=== PATIENT | male | born 1935 | race Caucasian/White ===

== ENCOUNTER 2017-01-01 19:51 | Inpatient (IN) | payer OTHER, SELFPAY ==
--- NOTE | ~2017-01-01 | DS ---
Discharge Summary [facility] [address] [place]. [address] NAME: PERFECTO TORRES : 33 STATUS : DIS IN PAT#: [id number] AGE: 81 ADM/REG DATE : 01/01/17 MR#: [id number] REPORT SERV DATE: 01/13/17 DICTATED BY: TEODORO REYNAGA DATE: 01/11/17 REPORT STATUS : Draft TRANSCRIBED BY: MODL DATE: 01/11/17 ADMISSION DATE: 01/01/2017 DISCHARGE DATE: 01/11/2017 CONSULTANTS: 1. Dylan Seals MD. 2. Dr. Jacqueline Sanchez, Neurology. 3. Jose F Sheffield M.D., Psychiatry. DISCHARGE DIAGNOSES: 1. Metabolic encephalopathy. 2. 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 3. 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 4. History of anterior myocardial infarction, 11/2014. 5. Previous pulmonary embolism in 2011. 6. 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 Rohit Lai. 7. Chronic obstructive pulmonary disease. 8. Hypertension. 9. Obstructive sleep apnea but not compliant with CPAP. 10.Knee osteoarthritis. 11.History of gout. 12.Stage 3 chronic kidney disease. 13.History of anorexia treated with steroids. This patient was brought to [facility] for approximately 2 weeks of changes in the patient's behavior. The reported that he was becoming paranoid, feeling that she was against him, his family was against him. He wanted to preach her to get together a 6 member committee to discuss their marriage. He wants her to sign everything that they talk about. He gets very mad and angry. He had impulsive buying. He had rapid changing of subjects. He was becoming irrational talking about going fishing and he would just stay out there fishing for a month. Because of this, he was referred to our team for inpatient care at [facility]. Imaging included chest x-ray which revealed some COPD and some mild atelectasis and some atherosclerotic changes of the thoracic aorta with a possible aneurysmal change of the thoracic aorta. CT of the brain without contrast revealed large, old stroke, right frontal and temporal region. No acute abnormalities were noted. The patient absolutely refused MRI imaging. He was seen by Neurology, Dr. Seals, was concerned he might have seizures causing the problem. So she did an EEG on the patient. No seizure activity was noted. Background activity appeared diffusely slow but slightly such. Blood cultures with no growth. Urinalysis with no convincing signs of infection. Did have proteinuria of 100. White blood count unremarkable. Hemoglobin was mildly low ranging between 11.5 and 13.5. Platelets Discharge Summary [address] [place]. [address] NAME: PERFECTO TORRES : 33 STATUS : DIS IN PAT#: [id number] AGE: 81 ADM/REG DATE : 01/01/17 MR#: [id number] REPORT SERV DATE: 01/13/17 DICTATED BY: TEODORO REYNAGA DATE: 01/11/17 REPORT STATUS : Draft TRANSCRIBED BY: PRAVEEN DATE: 01/11/17 were normal. Ammonia level was normal. He has stage 3 chronic kidney disease and that was stable with his creatinine ranging between 1.17 and 1.58. His electrolytes were unremarkable. Liver enzymes unremarkable. TSH normal. B12 normal. Folic acid normal. He was seen in consultation by psychiatrist, Dr. Jose F Sheffield. Dr. Sheffield found that historically talking to the and patient about two years earlier the patient had developed severe anorexia, weight loss, was very depressed, and withdrawn. Did not have any care for that. Dr. Sheffield felt patient was currently in a bipolar manic phase and started him on Depakote and Seroquel. With these additions, the patient's condition improved dramatically. His rapid speech resolved. His agitation and paranoia resolved. He was, at one point, too sedated when he was on Depakote 500 mg b.i.d. and Seroquel 100 mg at bedtime. He also was getting some daytime Seroquel. Seroquel was tapered. He was just put on nighttime doses. The patient still was drowsy. So we have tapered the Seroquel down to 25 mg at bedtime. The patient is now calm and cooperative. Thinking clearly. Because he has not been physically active through this long hospital stay other than minimal with physical therapy, he has lost a lot of leg muscle tone and is going to need inpatient physical therapy rehab. Those arrangements have been made with signature in the [facility] where he has recuperated in the past. DISCHARGE MEDICATIONS: Allopurinol 300 mg daily; vitamin C 500 mg daily; Lipitor 40 mg at bedtime; Rocaltrol 0.25 mg, he takes Friday, Friday, Friday, , Friday, Friday, skips on Friday; Coreg 6.25 mg twice a day hold if pulse less than 60 or systolic less than 105; vitamin B12 500 mcg daily; Atlas 500 mg at bedtime; Pepcid 20 mg daily; Zyrtec 10 mg daily; Seroquel 25 mg at bedtime; DuoNeb inhaled q.4 hours p.r.n. shortness of breath; Symbicort 160/4.5 two puffs twice a day; Tylenol 500 q.6 p.r.n. pain; Senokot two at bedtime p.r.n. Home CPAP to be used with sleep. We will try to encourage him to do this as I think it can help with his mental status. After he gets out of the rehab he should follow up with his PCP, Dr. Adan Carter, and his flexographic printing machinist, Dr. Sapp, and his inventory control specialist, Dr. Simental, and the and Psychiatry had talked about the patient following up with psychiatrist, Dr. Muhammad, in [facility] after discharge. I spent 40 minutes today with the patient and with discharge planning. I also called and talked to his daughter on the phone as I could not reach his . Her phone was not working properly. RSG/MICHELLEL Teodoro Reynaga M.D. / [id number] CC: Discharge Summary [address] [place]. [address] NAME: PERFECTO TORRES : 33 STATUS : DIS IN PAT#: [id number] AGE: 81 ADM/REG DATE : 01/01/17 MR#: [id number] REPORT SERV DATE: 03/27/17 DICTATED BY: TEODORO REYNAGA DATE: 01/11/17 REPORT STATUS : Draft TRANSCRIBED BY: MODL DATE: 01/11/17 Jacky Henson M.D. Joseph Powers, M.D. [facility] Prudencio Muhammad MD
--- NOTE | ~2017-01-01 | CN ---
Consultation Report [facility] [address] [place]. [address] NAME: PERFECTO TORRES : 33 STATUS : ADM Sammi PAT#: [id number] AGE: 81 ADM/REG DATE : 01/01/17 MR#: [id number] REPORT SERV DATE: 01/02/17 DICTATED BY: DYLAN SEALS DATE: 01/02/17 REPORT STATUS : Draft TRANSCRIBED BY: MODL DATE: 01/02/17 NEUROLOGICAL EVALUATION DATE OF CONSULTATION: 01/02/2017 REASON FOR NEUROLOGICAL CONSULTATION: Acute encephalopathy, history of cerebrovascular accident, rule out seizures versus new CVA. HISTORY OF PRESENT ILLNESS: This is an 81-year-old white male with known history of hypertension, coronary artery disease, aortic aneurysm repair, and prior history of CVA which occurred approximately a year ago, described as a brain bleed, who was admitted with two-week history of mental status changes and difficulty sleeping. The patient was hospitalized at [facility] last year for an acute right frontotemporal stroke, which appeared to be a hemorrhagic stroke. The patient gradually improved to the point where he was functioning well. The patient, however, was started on steroids as per the patient's by his primary physician, who told the family that "the patient will have to remain on prednisone for the rest of his life." The patient, as per his , refused to take all his medications approximately two weeks ago. He stopped taking his Lasix and stopped taking his prednisone approximately a week ago. The patient has been agitated, angry, suspicious of his , has not been sleeping except for two hours at night, rambling through the house, and acting confused and belligerent. This behavior is uncommon for this patient. The patient was brought to the emergency room, where an emergency CT scan of the head was obtained, which showed no evidence of acute changes or bleed and showed the area of encephalomalacia in the right frontotemporal region, which appeared to be a wedge shape. PAST MEDICAL HISTORY: As mentioned above, history of coronary artery disease, hypertension, COPD, past history of tobacco abuse, history of a stroke last year. PAST SURGICAL HISTORY: The patient had ?aortic aneurysm repaired a few years ago as per the patient's . FAMILY HISTORY: Significant for diabetes. SOCIAL HISTORY: The patient lives with his , this is his fourth . The patient does have history of prior smoking. There is no history of alcohol use. REVIEW OF SYSTEMS: Difficult to obtain from the patient. However, the patient's provided some of the answers. The patient did not have any fever, complaints of chills, or any signs of viral illnesses. There was no recent immunization. The patient did not have episodes of falling or hitting his head. The patient uses albuterol inhaler on daily basis and uses prednisone 10 mg a day. It appears that the patient was started on prednisone for treatment of his COPD. The patient did not have any signs of shaking or tonic-clonic activity, and there is no history of loss of consciousness. No new weakness was noted by the patient's . Consultation Report [address] [place]. [address] NAME: PERFECTO TORRES : 33 STATUS : ADM Sammi PAT#: [id number] AGE: 81 ADM/REG DATE : 01/01/17 MR#: [id number] REPORT SERV DATE: 01/02/17 DICTATED BY: DYLAN SEALS DATE: 01/02/17 REPORT STATUS : Draft TRANSCRIBED BY: PRAVEEN DATE: 01/02/17 The rest of 14-point review of system was negative as per . PHYSICAL EXAMINATION: VITAL SIGNS: Blood pressure 170/98, pulse is 90, respirations 18, and temperature is 98.6. HEAD AND NECK: Showed him to be normocephalic. There was no evidence of trauma. Auscultation of the neck showed no evidence of bruits. Neck was supple. There was no Kernig or Brudzinski. Cervical range of motion was not impaired. EYES: Showed mild ptosis on the right. Sclerae were not icteric. Conjunctivae were pink. The patient appeared to have slightly bulging eyes. Facial expression appeared symmetrical. CHEST: Symmetrical. LUNGS: Clear to auscultation. HEART: Regular S1 and S2. No S3, S4, or gallops were noted. ABDOMEN: Soft and nontender. EXTREMITIES: Showed no clubbing or cyanosis. There is no peripheral edema. Peripheral pulses appeared intact. IMPRESSION: Two-week history of manic episode in a patient with history of previous frontal lobe infarct. Differential diagnosis includes: 1. Recurrent partial seizures. 2. Manic phase of bipolar disorder. 3. Underlying infectious process. Doubt presence of meningitis, although it should be considered if no other cause of the patient's mental status changes is found. 4. History of hypertension, history of coronary artery disease, history of aortic aneurysm repair. 5. Increased risk of stroke or recurrent stroke. PLAN: 1. Recommend to obtain an EEG to monitor for possible focal changes that may suggest presence of underlying seizures. 2. Prevent falling and injury. 3. MRI of the brain without and with contrast to rule out an acute stroke or other abnormality which may explain the patient's change of behavior. 4. Would recommend to treat the patient with IV Depakote, which may control manic phase. The patient's liver function is normal. Monitor liver function if the patient remains on Depakote. Use of 500 mg q.12 hours IV may be needed since the patient refuses to take his oral medications. 5. Restart steroids. Would provide the patient with using inhaler and increased dose of steroids, the patient has been on it for two weeks. 6. The patient's laboratory studies were reviewed. No significant metabolic abnormalities were detected. The patient's magnesium needs to be tested with the next draw. The patient's medications were reviewed. The patient has been on amlodipine, allopurinol, carvedilol, vitamin B12, famotidine, mirtazapine 15 mg q.h.s., atorvastatin 40 mg, and loratadine. Would restart the patient's medications once he is more cooperative and able to take the medications. Monitor blood pressure, do not drop blood pressure Consultation Report [address] [place]. [address] NAME: PERFECTO TORRES : 33 STATUS : ADM Sammi PAT#: [id number] AGE: 81 ADM/REG DATE : 01/01/17 MR#: [id number] REPORT SERV DATE: 01/02/17 DICTATED BY: DYLAN SEALS DATE: 01/02/17 REPORT STATUS : Draft TRANSCRIBED BY: MODCarlos Eduardo DATE: 01/02/17 abruptly, maintain it in the 140-180 range if possible. 7. Sleep disturbance and chronic sleep deprivation may contribute to the patient's delirium. Would consider using a sleeping medication at bedtime if needed. Maintain the patient's activity during the day. Avoid the patient taking naps, which may further disturb his circadian rhythm. Obstructive sleep apnea should be considered, and an outpatient polysomnography study when the patient is more cooperative should be obtained to rule out sleep apnea or REM related behavioral disorder. 8. Laboratory studies should include vitamin B12 and folate level, vitamin D level, and cortisol level if the patient is not back on the steroids. Thank you for allowing me to participate in this patient's care. FAM/PRAVEEN Dylan Seals MD / [id number] CC: Jacky Hernandez Alex G
--- NOTE | ~2017-01-01 | EEG ---
Electroencephalogram [facility] [address] [place]. [address] NAME: PERFECTO TORRES : 33 STATUS : ADM IN PAT#: [id number] AGE: 81 ADM/REG DATE : 01/01/17 MR#: [id number] REPORT SERV DATE: 01/09/17 DICTATED BY: DYLAN SEALS DATE: 01/08/17 REPORT STATUS : Draft TRANSCRIBED BY: PRAVEEN DATE: 01/08/17 EEG NUMBER: [id number]. INTERPRETING PHYSICIAN: Dylan Seals MD REASON FOR EEG: Encephalopathy, altered mental status, rule out seizures, the patient was given 1 mg of Ativan prior to this study, episodes of manic behavior, past history of right MCA territory stroke. DESCRIPTION: 23 surface electrodes, 10-20 international placement was used. Video monitoring was utilized. The study was performed with the patient sitting in a reclining chair, intermittently restless. The background activity during very brief periods of semi- alertness showed posterior rhythmic 6-8 cycles per second, located in the posterior head regions. Mild asymmetry was noted with decreased amplitude noted on the right. The patient was described as drowsy, asleep, sedated. Photic stimulation was performed. During sleep stages, bilaterally synchronous and asynchronous sleep spindles were noted anteriorly. No significant asymmetry otherwise was present. Intermittent central and temporal slowing in the theta range was observed. No paroxysmal or epileptiform activity was seen during this study. 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 Photic stimulation did not bring out additional abnormalities. IMPRESSION: THE PATIENT WAS SEDATED PRIOR TO THE EEG STUDY. LARGE AMOUNT OF ACTIVITY NOTED CORRESPONDS TO LIGHT SLEEP WITH INTERMITTENT STAGES OF STAGE II SLEEP PRESENT. INTERMITTENT BILATERALLY SYNCHRONOUS AND ASYNCHRONOUS SLOWER ACTIVITY WAS SEEN IN CENTRAL REGIONS, RIGHT GREATER THAN LEFT. NO PAROXYSMAL OR EPILEPTIFORM ACTIVITY WAS SEEN DURING THIS EEG. DURING BRIEF PERIODS OF ALERTNESS, THE PATIENT'S BACKGROUND ACTIVITY APPEARED DIFFUSELY SLIGHTLY SLOW. CLINICAL CORRELATION IS RECOMMENDED. FAM/PRAVEEN Dylan Seals MD / [id number] CC: Jacky Henson Alex G
--- NOTE | ~2017-01-01 | CN ---
Consultation Report [facility] [address] [place] [place]. [address] NAME: PERFECTO TORRES : 33 STATUS : ADM IN PAT#: [id number] AGE: 81 ADM/REG DATE : 01/01/17 MR#: [id number] REPORT SERV DATE: 01/06/17 DICTATED BY: JOSE F ALVAREZ DATE: 01/06/17 REPORT STATUS : Draft TRANSCRIBED BY: MODL DATE: 01/06/17 PSYCHIATRIC CONSULTATION DATE OF CONSULTATION: 01/06/2017 I reviewed this patient's medical record. I discussed patient's status with Dr. Villa who is his current hospitalist. HISTORY OF PRESENT ILLNESS: He was admitted with a 2-week history of changed mental status. He became intermittently labile, angry, and delusional. He was buying things that he did not need. He had pressured speech and flight of ideas. He became increasingly impulsive and irrational. He was overly suspicious of his . His speech was limited to about 2 hours per night. His became fearful of his lability and his impulsivity. This change in his mental status was in marked contrast to his usual pleasant personality. PAST PSYCHIATRIC HISTORY: About 2 or 3 years ago, he had an unexplained loss of appetite. He lost about 100 pounds in weight. In retrospect, he now believes that he was going through a severe depression at that time. The depression lasted for about a year. Prior to that episode, he did not have any previous issues with mood. SOCIAL HISTORY: He is in his fourth marriage for 16 years. He has one son and one daughter from different previous marriages. FAMILY HISTORY: No psychiatric illness. MENTAL STATUS: He was awake and alert. He was oriented to time, place, and person. He displayed good, recent, and remote memory. His speech was somewhat pressured. His mood was somewhat anxious. His affect was labile, with brief crying episodes and occasional impulsive and angry statements. He expressed impatience with this hospitalization, complaining about the lack of a definitive diagnosis after a week of observation and testing. His attitude was suspicious. He had no clearly defined delusions. He did not appear to be experiencing hallucinations. DIAGNOSIS: Bipolar disorder, manic phase. RECOMMENDATIONS: 1. Continue Depakote. We can switch to p.o. form. 2. Add Seroquel 25 mg b.i.d. and 50 mg at bedtime and gradually increase as needed and tolerated. 3. DC Remeron. 4. I will follow. If his mental status shows a rapid improvement over the next few days, we may be able to avoid referral to inpatient psychiatry. Consultation Report [facility] [address] [place]. [address] NAME: PERFECTO TORRES : 33 STATUS : ADM IN PAT#: [id number] AGE: 81 ADM/REG DATE : 01/01/17 MR#: [id number] REPORT SERV DATE: 01/06/17 DICTATED BY: JOSE F ALVAREZ DATE: 01/06/17 REPORT STATUS : Draft TRANSCRIBED BY: PRAVEEN DATE: 01/06/17 YI/PRAVEEN Jose F Alvarez M.D. / [id number] CC: Jakcy Hernandez
--- NOTE | ~2017-01-01 | HP ---
History And Physical [facility] [address] [place]. [address] NAME: PERFECTO TORRES : 31 STATUS : ADM Sammi PAT#: [id number] AGE: 81 ADM/REG DATE : 01/01/17 MR#: [id number] REPORT SERV DATE: 01/02/17 DICTATED BY: GUSTABO CRUZ DATE: 01/02/17 REPORT STATUS : Draft TRANSCRIBED BY: MODCarlos Eduardo DATE: 01/02/17 DATE OF ADMISSION: 01/01/2017 CHIEF COMPLAINT: Delirium x2 weeks. HISTORY OF PRESENT ILLNESS: The patient is an 81-year-old very pleasant male with past medical history of CVA, brain bleed, COPD, CKD, hypertension, coronary artery disease, prior aneurysm seen by Dr. Lai, who presents after having, by family, approximately 2 weeks of mental status changes and acute delirium. Symptoms have been intermittent and mild. There is no pain or radiating symptoms, not associated with headache, nausea, vomiting, diarrhea, swelling, fever, diaphoresis, shortness of breath. No worsening or relieving symptoms, but symptoms still reported to be currently present. Although the patient is alert to person, place, time, and season, also president and current events, he is not quite oriented to current situation fully. The patient's reports that "he thinks that there is something wrong with our marriage; he states all of his family is mad at him; he wanted the preacher to get a 6-member [employer] of [employer]uther[employer] members to discuss this; he wants to sign everything we agree on." He gets very mad and angry, which family also reports is not his baseline. He is buying things he does not need, saying something one minute then changing rapid thoughts, and has some abstract thoughts of going fishing and being gone for a month. All these, which appear to be out of character for this patient, and family concerned for possible repeat brain bleed or some abnormality causing decompensation and requesting further workup before returning the patient home. REVIEW OF SYSTEMS: Aside from mental status confusion, the patient denies 10-point review of systems, reports that he is feeling well. PAST MEDICAL HISTORY: Noted for heart disease; COPD; hypertension; prior tobacco use, but quit in 1983; and also CKD. SURGICAL HISTORY: He has had aneurysm repair. The patient reports otherwise he has been fairly healthy and kind of redirects further questioning. FAMILY HISTORY: Diabetes. SOCIAL HISTORY: Lives with spouse, who I believe is his fourth . Accompanied by son and [id number]. Prior smoking history, quit in the 80s. No alcohol or illicits. PHYSICAL EXAMINATION: VITAL SIGNS: The patient's blood pressure 146/70, temperature 98.6, pulse 90, respirations 16, O2 saturations 94% on room air. GENERAL: Elderly, in no acute distress. Calm and pleasant. EYES: No scleral icterus. EOMI. ENT: Nares patent. Tongue midline. Moist mucous membranes. History And Physical [address] [address] NAME: PERFECTO TORRES : 31 STATUS : ADM Sammi PAT#: [id number] AGE: 81 ADM/REG DATE : 01/01/17 MR#: [id number] REPORT SERV DATE: 01/02/17 DICTATED BY: GUSTABO CRUZ DATE: 01/02/17 REPORT STATUS : Draft TRANSCRIBED BY: PRAVEEN DATE: 01/02/17 RESPIRATORY: Clear to auscultation. No wheezes or rales. CARDIOVASCULAR: Regular rate. No rubs. Mild systolic ejection murmur. GI: Soft, nontender, nondistended. Bowel sounds positive. : Normal external genitalia. No rashes. MUSCULOSKELETAL: Moves all extremities x4. Skin is warm and dry. LYMPH: No cervical or supraclavicular lymphadenopathy. HEME: No bleeding or bruising except on chin on the right side. NEURO: Alert and oriented to person, place, and current events, but not to situation. Moves all extremities x4. Symmetrical hand strength, but weak on the lower extremities. Mild atrophy of lower legs. PSYCH: Appropriate mood and affect, pleasant, joking manner, very talkative. ALLERGIES: ASPIRIN. MEDICATIONS: Tylenol, Ventolin, allopurinol, Norvasc, vitamin C, Lipitor, Symbicort, calcitriol, Coreg, Zyrtec, vitamin B12, Pepcid, Lasix, Remeron, and Deltasone. The patient has not been taking Lasix or Deltasone in the last 5 days. LABORATORY DATA: EKG: Sinus rhythm, rate 83, QTc 479. Brain without contrast: Large old CVA involving portions of the right frontal and temporal lobe. No acute CVA or other acute intracranial pathology identified. Diffusely motion degraded exam despite multiple imaging sequences. Urinalysis: 100 protein. Negative leukocyte esterase and nitrite. Glucose 73. Chest PA and lateral: Minimal right basal atelectasis or early infiltrate with probable right pleural fluid, atherosclerotic elongation, possible underlying aneurysmal change of the thoracic aorta, can be done evaluation on CT and chest. CMP: Sodium 142, potassium 4.4, BUN and creatinine of 30 and 1.37, troponin negative. LFTs within normal limits. CBC: WBC 10.1, H and H of 13.5 and 42.3, and platelets 223. ASSESSMENT: 1. Subacute delirium. 2. Chronic obstructive pulmonary disease. 3. History of brain bleed. 4. Mild azotemia. 5. Hypertension. 6. Aneurysm history. 7. Atelectasis versus early infiltrate. PLAN: 1. For subacute delirium, check TSH, B12, folate, troponins x2, CT done of head, neuro checks, and ionized calcium check. If negative, may require outpatient neuro, History And Physical [address] [address] NAME: PERFECTO TORRES : 31 STATUS : ADM Sammi PAT#: [id number] AGE: 81 ADM/REG DATE : 01/01/17 MR#: [id number] REPORT SERV DATE: 01/02/17 DICTATED BY: GUSTABO CRUZ DATE: 01/02/17 REPORT STATUS : Draft TRANSCRIBED BY: MODL DATE: 01/02/17 geriatric, psych evaluation. Discussed with the family. 2. COPD. O2, DuoNeb, spironolactone. 3. History of brain bleed. CT performed. No acute decompensation at this time. 4. Mild azotemia with CKD. Actually slightly better than prior, but we will give gentle IV fluids. Stopped Lasix approximately 5 days ago. 5. Hypertension, on CCB. 6. Aneurysm changes. Seen Dr. Lai. We will check ultrasound of aorta. History of repair. Not currently symptomatic. 7. Atelectasis versus early infiltrate. We will give O2. Repeat x-ray in the a.m. Does not have additional SIRS symptoms or hypoxia. We will check procalcitonin in the a.m. Hold from antibiotics at this time until repeat chest x-ray and additional labs. No leukocytosis. DDN/MODL Gustabo Cruz MD / [id number] CC: Jacky Hernandez ALEX G
--- NOTE | ~2017-01-01 | IDS ---
Interim Discharge Summary [facility] [address] [place]. [address] NAME: PERFECTO TORRES : 31 STATUS : ADM IN PAT#: [id number] AGE: 81 ADM/REG DATE : 01/01/17 MR#: [id number] REPORT SERV DATE: 01/06/17 DICTATED BY: ROSINA WATERS DATE: 01/06/17 REPORT STATUS : Draft TRANSCRIBED BY: MODCarlos Eduardo DATE: 01/06/17 ADMISSION DATE: 01/01/2017 DISCHARGE DATE: DIAGNOSES: So far are: 1. Delirium probably multifactorial. This could be secondary to dementia with psychotic features as the patient has suffered an old large stroke about a year ago, which could have contributed to the dementia. 2. This could also be secondary to manic phase of bipolar disorder. 3. 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 CONSULTS: Obtained so far include Urology consult and psychiatric consult by Dr. Sheffield. BRIEF HOSPITAL COURSE: The patient is an 81-year-old white male patient, essentially admitted with delirium/extreme agitation. Please see history and physical exam for more details. Essentially, the patient has been given Ativan p.r.n. to calm him down, but Neurology has seen him, and his CT scan of the brain does not show any new stroke. MRI of the brain does not show any new stroke. The patient also had an EEG that did not show any active seizure activity going on; however, Neurology started him on Depakote because this would help if he had seizures, and he was postictal which was causing him the confusion and would also help with his bipolar. There is no other source of infection. Blood cultures are negative. UA is clear. Chest x- ray is clear and normal. Hence, a psychiatric consultation was obtained and Dr. Sheffield seems to think that the patient is in manic phase of bipolar disorder. He wants to try him on Seroquel for the next two to three days, and if the patient continues to be extremely belligerent and refusing any oral medications, we may have no choice, but to [facility] and Dr. Sheffield will sign a CON at that time. RRA/MODL Rosina Waters M.D. / [id number] CC: Jacky Hernandez
[2017-01-01 16:37] LABS: BASOPHILS 0.4 %; BASOPHILS ABSOLUTE 0.04 10/3/uL (0.0-0.16); EOSINOPHILS 3.1 %; EOSINOPHILS ABSOLUTE 0.31 10/3/uL (0.0-0.53); HEMATOCRIT 42.3 % (40.0-51.0); HEMOGLOBIN 13.5 g/dL (13.6-17.8); IMMATURE GRANULOCYTES 0.8 %; IMMATURE GRANULOCYTES ABSOLUTE 0.08 10/3/uL (0.0-0.11); LYMPHOCYTES 21.9 %; LYMPHOCYTES ABSOLUTE 2.21 10/3/uL (0.67-4.30); MANUAL DIFF NO %; MEAN CORPUS HGB CONC 31.9 g/dL (32.0-36.0); MEAN CORPUSCULAR HEMOGLOB 30.7 pg (26.0-34.0); MEAN CORPUSCULAR VOLUME 96.1 fL (80-100); MEAN PLATELET VOLUME 10.3 fL (9.2-13.0); MONOCYTES 12.5 %; MONOCYTES ABSOLUTE 1.26 10/3/uL (0.21-1.20); NEUTROPHILS 61.3 %; PLATELET COUNT 223 10/3/uL (150-400); RBC DISTRIBUTION WIDTH 15.1 % (12.0-16.0); WHITE BLOOD CELLS 10.1 10/3/uL (4.5-10.5)
[2017-01-01 16:52] LABS: A/G RATIO 0.7 (0.7-1.9); ALBUMIN 2.7 G/DL (3.5-5.0); CALCIUM, SERUM 9.3 MG/DL (8.5-10.4); CHLORIDE, SERUM 107 MMOL/L (96-112); CO2 (CARBON DIOXIDE) 30 MMOL/L (24-34); CREATININE 1.37 MG/DL (0.70-1.30); GFR AFRICAN AMERICAN 55 ML/MIN (>=60); GFR NON AFRICAN AMERICAN 47 ML/MIN (>=60); GLOBULIN 4.1 G/DL (2.5-4.1); POTASSIUM, SERUM 4.4 MMOL/L (3.5-5.3); SGOT(AST) 12 U/L (5-40); SGPT(ALT) 19 U/L (5-65); SODIUM, SERUM 142 MMOL/L (135-148); TOTAL BILIRUBIN 0.7 MG/DL (0-1.2); TOTAL PROTEIN 6.8 G/DL (6.0-8.5); TROPONIN I <0.02 NG/ML (<0.05)
[2017-01-01 16:54] LABS: ALKALINE PHOSPHATASE 79 U/L (45-117); BUN (BLOOD UREA NITROGEN) 30 MG/DL (6-23); GLUCOSE, SERUM 94 MG/DL (60-99)
[~2017-01-01 19:51] MED LIST: ACET500CAP PO; ATEN25 PO; B12250T PO; C5; COREG6 PO; HCTZ12.5 PO; L40 PO; LIPITOR40 PO; LISINOPRIL40 MG PO; LOVENOX; NORV10 PO; NORV5 PO; P10 PO; PEP20 PO; REM15 PO; ROCALTROL 0.0.25 MCG PO; ROCALTROL0.25 MCG OR; SYMBICORT 160/41 INH INH; VENTOLIN HFA INH; VITC500 PO; VITS; Z300 PO; ZOCOR20 PO; ZYRTEC ALLGY10 MG PO; [UNRECOGNIZED DRUG - REMARK]
[2017-01-01 21:05] LABS: ASCORBIC ACID (UR NOT ORDER) 40 (NEG); BILIRUBIN, URINE NEGATIVE (NEG); ER URINALYSIS TAT 0 Hrs 24 Mins; KETONE, URINE NEGATIVE (NEG); LEUKOCYTE ESTERASE(NOT OR NEG (NEG); NITRITE (URINE) NEG (NEG); WBC (NOT ORDERED) (RFLEX) 4 (0-5)
[2017-01-03 06:50] LABS: BASOPHILS 0.3 %; BASOPHILS ABSOLUTE 0.02 10/3/uL (0.0-0.16); EOSINOPHILS 3.8 %; HEMOGLOBIN 12.5 g/dL (13.6-17.8); IMMATURE GRANULOCYTES 0.9 %; IMMATURE GRANULOCYTES ABSOLUTE 0.07 10/3/uL (0.0-0.11); LYMPHOCYTES 19.6 %; LYMPHOCYTES ABSOLUTE 1.54 10/3/uL (0.67-4.30); MEAN CORPUS HGB CONC 31.3 g/dL (32.0-36.0); MEAN CORPUSCULAR HEMOGLOB 30.1 pg (26.0-34.0); MEAN CORPUSCULAR VOLUME 96.4 fL (80-100); MEAN PLATELET VOLUME 10.6 fL (9.2-13.0); MONOCYTES 16.2 %; MONOCYTES ABSOLUTE 1.27 10/3/uL (0.21-1.20); NEUTROPHILS 59.2 %; NEUTROPHILS ABSOLUTE 4.64 10/3/uL (2.02-8.40); PLATELET COUNT 222 10/3/uL (150-400); RED CELL COUNT 4.15 10/6/uL (4.7-6.1); WHITE BLOOD CELLS 7.8 10/3/uL (4.5-10.5)
[2017-01-03 06:59] LABS: MANUAL DIFF NO %
[2017-01-03 07:25] LABS: CALCIUM, SERUM 9.2 MG/DL (8.5-10.4); CHLORIDE, SERUM 109 MMOL/L (96-112); CO2 (CARBON DIOXIDE) 27 MMOL/L (24-34); CREATININE 1.17 MG/DL (0.70-1.30); FREE T4 1.44 NG/DL (0.76-1.46); GFR AFRICAN AMERICAN 66 ML/MIN (>=60); GFR NON AFRICAN AMERICAN 57 ML/MIN (>=60); POTASSIUM, SERUM 4.3 MMOL/L (3.5-5.3); SODIUM, SERUM 144 MMOL/L (135-148)
[2017-01-03 07:26] LABS: BUN (BLOOD UREA NITROGEN) 26 MG/DL (6-23); FOLATE 34.7 NG/ML (>5.2); GLUCOSE, SERUM 61 MG/DL (60-99)
[2017-01-04 06:03] LABS: ALBUMIN 2.2 G/DL (3.5-5.0); DIRECT BILIRUBIN 0.1 MG/DL (0.0-0.4); INDIRECT BILIRUBIN(NOT ORDER) 0.5 MG/DL (0.1-0.9); TOTAL BILIRUBIN 0.6 MG/DL (0-1.2)
[2017-01-05 19:24] LABS: ASCORBIC ACID (UR NOT ORDER) 20 (NEG); BILIRUBIN, URINE NEGATIVE (NEG); KETONE, URINE NEGATIVE (NEG); LEUKOCYTE ESTERASE(NOT OR NEG (NEG); WBC (NOT ORDERED) (RFLEX) < 1 (0-5)
[2017-01-06 16:37] LABS: ALBUMIN 2.4 G/DL (3.5-5.0); ALKALINE PHOSPHATASE 68 U/L (45-117); DIRECT BILIRUBIN < 0.1 MG/DL (0.0-0.4); INDIRECT BILIRUBIN(NOT ORDER) 0.2 MG/DL (0.1-0.9); SGOT(AST) 14 U/L (5-40); SGPT(ALT) 15 U/L (5-65); TOTAL BILIRUBIN 0.3 MG/DL (0-1.2); TOTAL PROTEIN 6.3 G/DL (6.0-8.5)
[2017-01-06 16:42] LABS: DEPAKENE (VALPROIC ACID) 31.5 MCG/ML (50.0-100.0)
[2017-01-10 12:47] LABS: HEMATOCRIT 37.1 % (40.0-51.0); HEMOGLOBIN 11.5 g/dL (13.6-17.8); MEAN CORPUSCULAR HEMOGLOB 30.2 pg (26.0-34.0); MEAN CORPUSCULAR VOLUME 97.4 fL (80-100); MEAN PLATELET VOLUME 10.7 fL (9.2-13.0); PLATELET COUNT 173 10/3/uL (150-400); RBC DISTRIBUTION WIDTH 14.5 % (12.0-16.0); RED CELL COUNT 3.81 10/6/uL (4.7-6.1); WHITE BLOOD CELLS 9.3 10/3/uL (4.5-10.5)
[2017-01-10 12:51] LABS: MANUAL DIFF YES %
[2017-01-10 12:58] LABS: CALCIUM, SERUM 8.3 MG/DL (8.5-10.4); CHLORIDE, SERUM 107 MMOL/L (96-112); CO2 (CARBON DIOXIDE) 29 MMOL/L (24-34); CREATININE 1.58 MG/DL (0.70-1.30); GFR AFRICAN AMERICAN 46 ML/MIN (>=60); GFR NON AFRICAN AMERICAN 40 ML/MIN (>=60); POTASSIUM, SERUM 4.4 MMOL/L (3.5-5.3); SODIUM, SERUM 141 MMOL/L (135-148)
[2017-01-10 12:59] LABS: BUN (BLOOD UREA NITROGEN) 41 MG/DL (6-23); GLUCOSE, SERUM 98 MG/DL (60-99)
[2017-01-10 13:10] LABS: BAND NEUTROPHILS 5 %; EOSINOPHILS 3 %; EOSINOPHILS ABSOLUTE (CALC) 0.28 10/3/uL (0.0-0.53); HYPOCHROMIA 1+ (3-10/OIF) (0-2/OIF); LYMPHOCYTES 17 %; LYMPHOCYTES ABSOLUTE (CALC) 1.58 10/3/uL (0.67-4.30); MONOCYTES 10 %; MONOCYTES ABSOLUTE (CALC) 0.93 10/3/uL (0.21-1.20); NEUTROPHILS ABSOLUTE (CALC) 6.51 10/3/uL (2.02-8.40); PLATELET ESTIMATE ADQ (ADEQUATE); SEGMENTED NEUTROPHIL (0) 65 %; TOTAL NUCLEATED CELLS 100
== END 2017-01-11 14:26 | DRG 885 ==
LOC: ER 19:51 → 1SO 20:00
PROVIDERS: Emergency Medicine; Hospitalist; Nurse Practitioner
DX: F30.2 Manic episode, severe with psychotic symptoms (principal); G93.41 Metabolic encephalopathy; G40.209 Localization-related (focal) (partial) symptomatic epilepsy and epileptic syndromes with complex partial seizures, not intractable, without status epilepticus; F05 Delirium due to known physiological condition; F03.90 Unspecified dementia, unspecified severity, without behavioral disturbance, psychotic disturbance, mood disturbance, and anxiety; J44.9 Chronic obstructive pulmonary disease, unspecified; I25.10 Atherosclerotic heart disease of native coronary artery without angina pectoris; I12.9 Hypertensive chronic kidney disease with stage 1 through stage 4 chronic kidney disease, or unspecified chronic kidney disease; I73.9 Peripheral vascular disease, unspecified; N18.3 Chronic kidney disease, stage 3 (moderate); M17.0 Bilateral primary osteoarthritis of knee; G47.33 Obstructive sleep apnea (adult) (pediatric); I25.2 Old myocardial infarction; Z79.899 Other long term (current) drug therapy; Z87.891 Personal history of nicotine dependence; Z91.14 Patient's other noncompliance with medication regimen; Z86.711 Personal history of pulmonary embolism; Z86.73 Personal history of transient ischemic attack (TIA), and cerebral infarction without residual deficits; Z88.6 Allergy status to analgesic agent
CPT/HCPCS: 70450; 71010; 71020; 80048; 80053; 80076; 80164; 81001; 82140; 82607; 82746; 82962; 83605; 84145; 84439; 84443; 84481; 84484; 85025; 87040; 93005; 94640; 95819; 97110-GP; 97162-GP; 99285; A9270-GY